=== PATIENT | male | born 1975 | race Caucasian/White ===

== ENCOUNTER 2016-12-22 10:53 | Emergency (ER) | payer MEDICAID ==
[~2016-12-22] VITALS: Ht 177.8 cm; Wt 79.9 kg
[2016-12-22 10:56] VITALS: BP 161/95
[2016-12-22] MEDS ORDERED: KETOROLAC 30 MG/1 ML IM ONE (11:30)
[2016-12-22] MEDS ORDERED: KETOROLAC 30 MG/1 ML ONE (12:45)
== END 2016-12-22 13:23 | disposition home or self-care (01) ==
LOC: ED 12:42
DX: S33.5XXA Sprain of ligaments of lumbar spine, initial encounter (principal); M46.1 Sacroiliitis, not elsewhere classified; Z90.49 Acquired absence of other specified parts of digestive tract; X50.9XXA Other and unspecified overexertion or strenuous movements or postures, initial encounter; Y93.89 Activity, other specified; Y92.89 Other specified places as the place of occurrence of the external cause; Y99.8 Other external cause status
CPT/HCPCS: 96372; 99283; J1885

== ENCOUNTER 2016-12-26 22:20 | Emergency (ER) | payer MEDICAID ==
[~2016-12-26] VITALS: Ht 177.8 cm; Wt 82.5 kg
[2016-12-26] MEDS ORDERED: OXYcodone/APAP 10/325MG TABLET PO ONE (23:30)
[2016-12-26] MEDS ORDERED: KETOROLAC 30 MG/1 ML IM ONE (23:30)
[2016-12-26] MEDS ORDERED: KETOROLAC 30 MG/1 ML ONE (23:34)
[2016-12-26] MEDS ORDERED: OXYcodone/APAP 10/325MG TABLET ONE (23:34)
[2016-12-27 00:20] VITALS: BP 163/95
== END 2016-12-27 00:23 | disposition home or self-care (01) ==
LOC: ED 23:59
DX: S39.012A Strain of muscle, fascia and tendon of lower back, initial encounter (principal); M51.16 Intervertebral disc disorders with radiculopathy, lumbar region; X58.XXXA Exposure to other specified factors, initial encounter; Y93.89 Activity, other specified; Y92.89 Other specified places as the place of occurrence of the external cause; Y99.9 Unspecified external cause status
CPT/HCPCS: 72110; 96372; 99284; J1885; J7512

== ENCOUNTER 2017-04-13 14:06 | Emergency (ER) | payer SELFPAY ==
[~2017-04-13] VITALS: Ht 177.8 cm; Wt 75.8 kg
[2017-04-13] MEDS ORDERED: LIDOCAINE 1%, 20ML ONE (14:49)
[2017-04-13] MEDS ORDERED: LIDOCAINE 1%, 20ML SQ ONE (15:00)
[2017-04-13 15:28] VITALS: BP 158/96
== END 2017-04-13 15:30 | disposition home or self-care (01) ==
LOC: ED 15:00
DX: S30.862A Insect bite (nonvenomous) of penis, initial encounter (principal); L02.31 Cutaneous abscess of buttock; W57.XXXA Bitten or stung by nonvenomous insect and other nonvenomous arthropods, initial encounter; Y93.89 Activity, other specified; Y92.89 Other specified places as the place of occurrence of the external cause; Y99.8 Other external cause status
CPT/HCPCS: 10060

== ENCOUNTER 2017-04-18 14:12 | Emergency (ER) | payer OTHER ==
[~2017-04-18] VITALS: Ht 177.8 cm; Wt 75.1 kg
[2017-04-18 14:15] VITALS: BP 162/92
== END 2017-04-18 16:18 | disposition home or self-care (01) ==
LOC: ED 16:14
DX: L03.317 Cellulitis of buttock (principal); L02.31 Cutaneous abscess of buttock
CPT/HCPCS: 99283

== ENCOUNTER 2017-05-20 03:44 | Inpatient (IN) | payer MEDICAID, OTHER ==
[~2017-05-20] VITALS: Ht 157.5 cm; Wt 81.5 kg
[2017-05-20] MEDS ORDERED: KETOROLAC 30 MG/1 ML ONE (04:08)
[2017-05-20] MEDS ORDERED: morphine SULFATE 10 MG/ML, 1ML ONE (04:09)
[2017-05-20] MEDS ORDERED: KETOROLAC 30 MG/1 ML IVPush ONE (04:30)
[2017-05-20] MEDS ORDERED: VANCOMYCIN PER PHARMACY MC PRN (04:30)
[2017-05-20] MEDS ORDERED: MORPHINE SULFATE 4 MG/ML, 1ML IVPush PRN (04:30)
[2017-05-20] MEDS ORDERED: AMPICILLIN/SULBACTAM 3 GM in SODIUM CHLORIDE 0.9% 100 ML IVPB ONE (04:30)
[2017-05-20] MEDS ORDERED: SODIUM CHLORIDE 0.9% 1,000ML IVBOLUS ONE (04:30)
[2017-05-20] MEDS ORDERED: PHARMACOKINETIC CONSULTATION MC ONE (04:30)
[2017-05-20] MEDS ORDERED: SODIUM CHLORIDE FLUSH 10ML SYR IVF ONE (04:30)
[2017-05-20 05:00] LABS: BLOOD UREA NITROGEN 20 mg/dL (7-18)
[2017-05-20] MEDS ORDERED: VANCOMYCIN 1,800 MG in SODIUM CHLORIDE 0.9% 250 ML IV ONE (05:00)
[2017-05-20] MEDS ORDERED: ACETAMINOPHEN 325 MG TABLET PO PRN (05:00)
[2017-05-20] MEDS ORDERED: LORazepam 2 MG/ML, 1ML IM PRN (05:00)
[2017-05-20] MEDS ORDERED: HYDROmorphone 1 MG/ML, 1ML IM PRN (05:00)
[2017-05-20] MEDS ORDERED: hydrALAzine 20 MG/ML, 1ML IVPush PRN (05:00)
[2017-05-20] MEDS ORDERED: VANCOMYCIN PER PHARMACY MC SCH (05:00)
[2017-05-20 05:15] LABS: HEMATOCRIT 39.6 % (39.2-51.8); HEMOGLOBIN 13.7 g/dL (13.7-18.0); WHITE BLOOD COUNT 9.5 x10^3/uL (3.4-10)
[2017-05-20] MEDS ORDERED: PHARMACOKINETIC MONITORING MC PRN (06:00)
[2017-05-20 06:02] VITALS: BP 130/71
[2017-05-20] MEDS: ENOXAPARIN 40 MG/0.4 ML SQ SCH (06:16)
[2017-05-20 06:45] VITALS: BP 130/78
[2017-05-20] MEDS: SODIUM CHLORIDE FLUSH 10ML SYR IVF SCH ×2 (09:00→20:10)
[2017-05-20] MEDS: FAMOTIDINE 20 MG/2 ML IVPush SCH ×2 (09:24→20:10)
[2017-05-20] MEDS: OXYcodone/APAP 5/325MG TABLET PO PRN ×4 (10:55→22:40)
[2017-05-20 13:59] VITALS: BP 136/83
[2017-05-20] MEDS: VANCOMYCIN 1,500 MG in SODIUM CHLORIDE 0.9% 250 ML IV SCH (17:06)
[2017-05-20 19:49] VITALS: BP 129/83
[2017-05-20] MEDS: FAMOTIDINE 20 MG TABLET PO SCH (20:09)
[2017-05-21 04:17] VITALS: BP 141/86
[2017-05-21] MEDS: ENOXAPARIN 40 MG/0.4 ML SQ SCH (04:51)
[2017-05-21] MEDS: OXYcodone/APAP 5/325MG TABLET PO PRN ×3 (04:51→20:15)
[2017-05-21] MEDS: VANCOMYCIN 1,500 MG in SODIUM CHLORIDE 0.9% 250 ML IV SCH ×2 (04:51→17:34)
[2017-05-21 05:40] LABS: HEMATOCRIT 37.8 % (39.2-51.8); HEMOGLOBIN 13.1 g/dL (13.7-18.0); WHITE BLOOD COUNT 5.9 x10^3/uL (3.4-10)
[2017-05-21] MEDS: FAMOTIDINE 20 MG/2 ML IVPush SCH ×2 (08:38→20:15)
[2017-05-21] MEDS: FAMOTIDINE 20 MG TABLET PO SCH ×2 (08:49→20:15)
[2017-05-21] MEDS: SODIUM CHLORIDE FLUSH 10ML SYR IVF SCH ×2 (08:49→20:15)
[2017-05-21 09:04] VITALS: BP 155/86
[2017-05-21] MEDS ORDERED: LIDOCAINE 2%, 20ML ONE (12:15)
[2017-05-21 13:20] VITALS: BP 148/93
[2017-05-21 20:17] VITALS: BP 162/84
[2017-05-22] MEDS: OXYcodone/APAP 5/325MG TABLET PO PRN ×3 (01:52→17:41)
[2017-05-22 01:54] VITALS: BP 151/87
[2017-05-22] MEDS: VANCOMYCIN 1,500 MG in SODIUM CHLORIDE 0.9% 250 ML IV SCH ×2 (05:24→17:36)
[2017-05-22] MEDS: ENOXAPARIN 40 MG/0.4 ML SQ SCH (05:24)
[2017-05-22] MEDS: FAMOTIDINE 20 MG/2 ML IVPush SCH (07:47)
[2017-05-22 07:49] VITALS: BP 156/86
[2017-05-22] MEDS: SODIUM CHLORIDE FLUSH 10ML SYR IVF SCH (07:54)
[2017-05-22] MEDS: FAMOTIDINE 20 MG TABLET PO SCH (07:54)
[2017-05-22 14:21] VITALS: BP 149/86
[2017-05-22] MEDS ORDERED: DOXY100T PO (15:51)
== END 2017-05-22 19:45 | disposition home or self-care (01) | DRG 603 ==
LOC: ED 04:42 → EDIP 04:48 → 4NOR 05:18
PROVIDERS: ADMIT Family Medicine; ATTEND Family Medicine
PROC: 0SJD3ZZ Inspection of Left Knee Joint, Percutaneous Approach (ICD-10-PCS; principal; 2017-05-21)
DX: L03.116 Cellulitis of left lower limb (principal); F12.90 Cannabis use, unspecified, uncomplicated; T63.391A Toxic effect of venom of other spider, accidental (unintentional), initial encounter; L02.416 Cutaneous abscess of left lower limb; B95.62 Methicillin resistant Staphylococcus aureus infection as the cause of diseases classified elsewhere; S80.262A Insect bite (nonvenomous), left knee, initial encounter; F17.200 Nicotine dependence, unspecified, uncomplicated; I88.9 Nonspecific lymphadenitis, unspecified; L02.93 Carbuncle, unspecified; Z90.49 Acquired absence of other specified parts of digestive tract; Z90.89 Acquired absence of other organs; Y92.89 Other specified places as the place of occurrence of the external cause
CPT/HCPCS: 20606; 36415; 76942; 80048; 80202; 82040; 85025; 85651; 87040; 87070; 87077; 87186; 87205; 96365; 96368; 96375; J0295; J1650; J1885; J3370; J3490; J7030; J7050; S0028

== ENCOUNTER 2018-01-05 00:56 | Emergency (ER) | payer MEDICAID, OTHER ==
[~2018-01-05] VITALS: Ht 177.8 cm; Wt 79.9 kg
[~2018-01-05 00:56] MED LIST: DOXY100T PO
[2018-01-05 00:57] VITALS: BP 167/100
[2018-01-05] MEDS ORDERED: PENICILLIN VK 500MG TABLET ONE (01:27)
[2018-01-05] MEDS ORDERED: PENICILLIN VK 500MG TABLET PO SCH (01:30)
== END 2018-01-05 01:52 | disposition home or self-care (01) ==
LOC: ED 01:25
DX: K08.89 Other specified disorders of teeth and supporting structures (principal); R51 Headache
CPT/HCPCS: 99283

== ENCOUNTER 2019-08-07 14:37 | Emergency (ER) | payer MEDICAID ==
[2019-08-07 14:50] VITALS: BP 131/73
[2019-08-07] MEDS ORDERED: ACETAMINOPHEN 500 MG TABLET PO ONE (15:00)
[2019-08-07] MEDS ORDERED: DEXAMETHASONE 4 MG TABLET PO ONE (15:30)
[2019-08-07] MEDS ORDERED: PLEASE ENTER HEIGHT AND WEIGHT MC SCH (15:30)
[2019-08-07] MEDS ORDERED: DEXAMETHASONE 4 MG TABLET ONE (15:46)
[2019-08-07] MEDS ORDERED: ACETAMINOPHEN 500 MG TABLET ONE (15:46)
--- NOTE | 2019-08-07 15:50 | NUR ---
medicated per emar
[2019-08-07 15:53] LABS: RAPID INFLUENZA A Negative (Negative); RAPID INFLUENZA B Negative (Negative)
== END 2019-08-07 16:56 | disposition home or self-care (01) ==
LOC: ED 15:04
DX: B34.9 Viral infection, unspecified (principal); R51 Headache; I10 Essential (primary) hypertension; M79.10 Myalgia, unspecified site; R00.0 Tachycardia, unspecified; Z90.89 Acquired absence of other organs
CPT/HCPCS: 71046; 87400; 99284

== ENCOUNTER 2021-03-22 22:21 | Emergency (ER) | payer MEDICAID ==
[~2021-03-22] VITALS: Ht 177.8 cm; Wt 79.0 kg
[2021-03-22 22:25] VITALS: BP 180/115
--- NOTE | 2021-03-22 23:33 | NUR ---
SPLINT APPLIED IN [facility] BY [facility], TOLERATED WELL. PROVIDED WITH ALL DISCHARGE PAPERWORK AND INSTRUCTIONS.
--- NOTE | 2021-03-22 23:34 | NUR ---
Patient/Caregiver given discharge instructions and they have confirmed that they understand the instructions. Patient ambulatory with steady gait. NAD, all questions answered appropriately, denies additional needs at this time. No personal belongings left in room after discharge.
== END 2021-03-22 23:48 | disposition home or self-care (01) ==
LOC: ED 22:30
DX: S63.501A Unspecified sprain of right wrist, initial encounter (principal); I10 Essential (primary) hypertension; W18.30XA Fall on same level, unspecified, initial encounter; Y93.89 Activity, other specified; Y92.410 Unspecified street and highway as the place of occurrence of the external cause; Y99.8 Other external cause status
CPT/HCPCS: 29125; 99283